=== PATIENT | female | born 2000 | race Caucasian/White ===

== ENCOUNTER 2020-07-30 09:53 | Outpatient (RCR) | payer OTHER, SELFPAY ==
--- NOTE | 2020-08-21 08:32 | MHC.PT.DC ---
[facility] [place] Office [place] Office [place] Office [address] Morris Cueto [address] [facility] [phone] F: [phone] F: [phone] F: [phone] F: [phone] Physical Therapy Discharge Report Diagnosis: Left knee and back pain Date of Evaluation: 06/23/20 Date of Discharge: 08/21/20 Treatments to Date: 8 Cancellations to Date: 2 No Shows to Date: 1 Discharge Status: Visit Non-compliance Discharge Summary: D/c due to noncompliance with scheduling policy Electronically signed by: Regina Soria DPRachel Please sign and return to therapist. Thank you for your referral.
== END 2020-08-21 08:40 | disposition other institution (70) ==
LOC: HO.PTWFD 09:53
PROVIDERS: PCP Hospitalist; Visit Provider Hospitalist
DX: M25.562 Pain in left knee (principal); M54.9 Dorsalgia, unspecified; G89.29 Other chronic pain
CPT/HCPCS: 97110

== ENCOUNTER → 2021-01-12 15:06 | Outpatient (BNVA) | payer OTHER, SELFPAY | PROVIDERS: PCP Hospitalist; Visit Provider Surgery | DX: K42.9 Umbilical hernia without obstruction or gangrene (principal); L98.9 Disorder of the skin and subcutaneous tissue, unspecified | CPT/HCPCS: 99202 ==

== ENCOUNTER 2021-09-16 12:11 | Emergency (ER) | payer OTHER, SELFPAY ==
[2021-09-16 12:26] VITALS: BP 135/89; PULSE 86; RESP 18; TEMP 36.5; O2SAT 98; BMI 34.9
[2021-09-16 12:43] LABS: Appearance Urine HAZY; Color Urine YELLOW; Glucose Urine UA NEG (NEG); Leukocyte Esterase Urine NEG (NEG); Nitrite Urine NEG (NEG); Specific Gravity - Urine >= 1.030 (1.005-1.025); UACC Culture Trigger NO; Urine Blood NEG (NEG); Urine Ketones >=80 MG/DL (NEG); Urine Protein 1+ MG/DL (NEG-TRACE)
[2021-09-16 12:54] LABS: COVID-19 Test Negative (Negative)
--- NOTE | 2021-09-16 13:01 | ED_ITS ---
HPI - General Adult General Chief complaint: General Medical Stated complaint: congestion, cough, chest wall pain Time Seen by Provider: 09/16/21 13:01 Source: patient Mode of arrival: ambulatory Limitations: no limitations History of Present Illness HPI narrative: patient with URI symptoms with chills, abdominal pain and nausea and vomiting. Patient denies , patient is not vaccinated. Patient has been sick for a week. Onset (ago): week(s) Severity: mild Associated symptoms: nausea/vomiting Related Data Home Medications Medication Instructions Recorded Confirmed ferrous sulfate 325 mg (65 mg 325 mg PO DAILY 12/17/20 01/12/21 iron) tablet,delayed release vitamin with calcium 1 tab PO DAILY 12/17/20 01/12/21 no.72-iron 27 mg-folic acid 1 mg tablet Previous Rx's Medication Instructions Recorded ondansetron HCl 4 mg tablet 4 mg PO Q8H PRN #10 tab 09/16/21 (Zofran) [id number]-[id number] 2.5 20 ml PO Q4H PRN #118 ml 09/16/21 mg-5 mg-50 mg/5 mL oral liquid (Robitussin Cough and Cold CF) Allergies Allergy/AdvReac Type Severity Reaction Status Date / Time No Known Allergies Allergy Verified 01/12/21 15:14 [No Known Allergies*] Review of Systems Constitutional: Constitutional: Reports no additional constitutional complaints Eyes: Eyes: Reports no additional eye complaints ENT: Denies dizziness Cardiovascular: Cardiovascular: Reports no additional cardiovascular complaints Respiratory: Respiratory: Reports as per HPI Gastrointestinal: Gastrointestinal: Reports no additional gastrointestinal complaints Genitourinary: Genitourinary: Reports no additional female genitourinary complaints Musculoskeletal: Musculoskeletal: Reports no additional musculoskeletal complaints Integumentary/Breasts: Skin/Breast: Denies rash Neurologic: Reports system reviewed and no additional complaints, except as documented, Denies dizziness and Denies Sensory deficit (Neuro) Psychiatric: Psychiatric: Denies anxiety PMFSH Past Medical History Medical History Anxiety and depression Body piercing Skin lesion Umbilical hernia Surgical History History of section Family History Family History Father No problems noted. Mother Bipolar 1 disorder Anxiety Depression Paternal Grandmother Bipolar 1 disorder Other Breast cancer Ovarian cancer Stomach cancer Social History Social History Advance Directives Date on File: 07/30/20 Physical Exam Vital Signs: Vital Signs: Last Vital Signs Temp 97.7 F 09/16/21 12:26 Pulse 86 09/16/21 12:26 Resp 18 09/16/21 12:26 BP 135/89 09/16/21 12:26 Pulse Ox 98 09/16/21 12:26 Body Mass Index 34.9 Const: General: healthy appearing Nutritional Appearance: average body habitus Orientation/consciousness: oriented to person and patient oriented x3 Limitations: no limitations HENMT: Head: Yes normal to inspection Ears: external ears normal General nose exam: Normal external nose present Mouth: Normal oral and palatal mucosa present and oropharynx normal Throat: Yes posterior oropharynx normal Eyes: General: appearance normal, both eyes and all related structures Neck: Other: supple Neck: Yes normal visual inspection Chest: Chest palpation & inspection: normal inspection of the chest Resp: Auscultation: clear to auscultation bilaterally Cardio: Jugular venous distension: no JVD Rate: regular rate Rhythm: regular rhythm Heart sounds: S1 normal heart sound present and S2 normal heart sound present GI: Inspection: Yes normal to inspection Palpation (GI): Soft to palpation, nontender and No hepatosplenomegaly present Auscultation: normal bowel sounds : General: Yes no CVA tenderness Back/Spine/Pelvis: Back: no CVA tenderness Skin: General skin exam: no rashes or lesions noted Neuro: General: oriented to person and patient oriented x3 Cranial nerves: Yes CN's II-XII intact bilaterally Motor exam (neuro): 5/5 motor strength present throughout Sensory Exam: No Sensory deficit (Neuro) Extrem: General: Yes normal to inspection Psych: Appearance: grossly normal Course Reevaluation(s) Reevaluation #1: patient with URI and vomiting will dc on robitussin and zofran Time: 13:08 Medical Decision Making Lab Data Labs: Lab Results 09/16/21 09/16/21 Range/Units 12:30 12:34 Urine Color YELLOW Urine Appearance HAZY Urine pH 6.0 (5.0-8.0) Ur Specific [place] >= 1.030 H (1.005-1.025) Urine Protein 1+ H (NEG-TRACE) MG/DL Urine Glucose (UA) NEG (NEG) MG/DL Urine Ketones >=80 (NEG) MG/DL Urine Blood NEG (NEG) Urine Nitrite NEG (NEG) Ur Leukocyte Esterase NEG (NEG) COVID-19 (CHRISTIAN) Negative (Negative) COVID-19 Clin Com See Note Discharge Plan Discharge Clinical Impression: Upper respiratory infection Qualifiers: URI type: unspecified URI Qualified Code(s): J06.9 - Acute upper respiratory infection, unspecified Vomiting Qualifiers: Vomiting type: unspecified Vomiting Intractability: non-intractable Nausea presence: with nausea Qualified Code(s): R11.2 - Nausea with vomiting, unspecified Patient Disposition: Home, Self-Care Instructions: Upper Respiratory Infection (ED), Acute Nausea and Vomiting (ED), Viral Syndrome (ED) Prescriptions: New ondansetron HCl [Zofran] 4 mg tablet 4 mg PO Q8H PRN (Reason: nausea and vomiting) Qty: 10 RF: 0 Robitussin Cough and Cold CF 2.5-5-50 mg/5 mL liquid 20 ml PO Q4H PRN (Reason: cold symptoms) Qty: 118 RF: 0 No Action Vitamin Plus Low Iron 27 mg iron- 1 mg tablet 1 tab PO DAILY RF: 0 ferrous sulfate 325 mg (65 mg iron) tablet,delayed release (DR/EC) 325 mg PO DAILY RF: 0 Referrals: Nichole Spangler NP [Primary Care Provider] - 1 week
[2021-09-16 13:11] LABS: Mucus Urine 2+ /LPF; RBC Urine 0-2 /HPF (0); Squamous Epithelial Cell Urine 1+ /LPF; WBC Urine 0-2 /HPF (0-4)
[2021-09-16] MEDS: Ondansetron ODT 4 MG TAB.RAPDIS TRANSLINGU (13:23)
--- NOTE | 2021-09-16 13:49 | PC.NURSE ---
no n/v, skin wpd, reports zofran worked well,
== END 2021-09-16 13:49 | disposition home or self-care (01) ==
LOC: HO.ED 13:30
PROVIDERS: Emergency Provider Emergency Medicine; PCP Internal Medicine
DX: J06.9 Acute upper respiratory infection, unspecified (principal); R09.81 Nasal congestion; R05.9 Cough, unspecified; R11.2 Nausea with vomiting, unspecified; R07.89 Other chest pain; Z20.822 Contact with and (suspected) exposure to COVID-19; Z79.899 Other long term (current) drug therapy
CPT/HCPCS: 36415; 81001; 87635; 99283

== ENCOUNTER 2021-09-17 17:15 | Emergency (ER) | payer OTHER, SELFPAY ==
--- NOTE | ~2021-09-17 | CT_ITS ---
EXAMINATION: CT CHEST, ABDOMEN AND PELVIS WITH CONTRAST CLINICAL INFORMATION: Difficulty breathing. Question pneumonia. Abdominal pain, back pain, elevated white blood cell count. COMPARISON: Chest radiograph done earlier the same day. TECHNIQUE: Contiguous axial thin section helical images of the chest, abdomen and pelvis were performed following the administration of oral contrast and 85 mL of intravenous Omnipaque 350. The data set was reformatted in the coronal and sagittal planes and reviewed on an independent workstation. This CT examination was performed using dose optimization techniques as appropriate, variously including the following: *Automated exposure control *Adjustment of mA and/or kV according to patient size (this includes techniques or standardized protocols for targeted exams where dose is matched to indication/reason for exam; i.e. extremities or head) *Use of iterative reconstruction technique DLP: 759 mGy-cm FINDINGS: LUNGS: No airspace consolidation to correspond to the prior chest radiograph findings. No pulmonary nodule or mass. The central airways are patent. PLEURA: No pleural effusion or pneumothorax. No pleural mass or thickening. MEDIASTINUM: No cardiomegaly. No significant pericardial effusion. No thoracic aortic dilatation or dissection. 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 No significant mediastinal or hilar lymphadenopathy. CHEST WALL/AXILLA: No lymphadenopathy. THYROID: Unremarkable. LIVER, GALLBLADDER, AND BILIARY TREE: Normal size, shape, and attenuation. No focal hepatic lesion. No intra or extrahepatic biliary ductal dilatation. The gallbladder is unremarkable with no evidence of radiopaque gallstones, gallbladder wall thickening, or obvious pericholecystic inflammatory changes. PANCREAS: Unremarkable. SPLEEN: Unremarkable. ADRENAL GLANDS: Unremarkable. KIDNEYS AND URETERS: Normal size, shape, and attenuation. No hydronephrosis, hydroureter, or calculi. No perinephric stranding. BLADDER: Unremarkable. GASTROINTESTINAL TRACT: No bowel wall thickening or associated inflammatory change. No small or large bowel obstruction. The appendix is unremarkable. PERITONEAL CAVITY: No intra-abdominal free air or free fluid. No intra-abdominal mass or organized fluid collection/abscess formation. ABDOMINAL WALL: No significant abdominal wall hernia. LYMPH NODES: No significant lymphadenopathy. VASCULAR: Contrast opacifies the abdominal aorta and its branch vessels. No abdominal aortic dilatation or dissection. The IVC is unremarkable. PELVIC VISCERA: The uterus and adnexa are unremarkable. OSSEOUS STRUCTURES: No acute osseous abnormality. No lytic or blastic osseous lesion. CT/CT abdomen pelvis w con IMPRESSION: 1. No airspace consolidation. No findings to correlate with the chest radiograph. No pulmonary nodule or mass. 2. No intra-abdominal mass, abscess, lymphadenopathy, or ascites. 3. No bowel wall thickening or associated inflammatory change. No small or large bowel obstruction. Unremarkable appendix.
--- NOTE | ~2021-09-17 | XR_ITS ---
EXAMINATION: XR CHEST CLINICAL INFORMATION: Difficulty breathing. COMPARISON: None. TECHNIQUE: AP view of the chest was obtained. FINDINGS: Subtle asymmetric airspace densities in the right lower lobe with otherwise clear lungs. No pleural effusion or pneumothorax. Normal appearance of the cardiomediastinal silhouette. No acute osseous findings. XR/XR chest 1V IMPRESSION: Questionable hazy airspace opacities in the right lung base which could potentially be related with subsegmental atelectasis or bronchovascular crowding. However, an early infiltrate is difficult to entirely exclude and clinical correlation for an infection is needed. No dense focal consolidation. No pleural effusion or pneumothorax.
[2021-09-17 17:20] VITALS: BP 143/126; PULSE 99; RESP 33; TEMP 36.5; O2SAT 99; BMI 28.2
--- NOTE | 2021-09-17 17:59 | ED_ITS ---
HPI - General Adult General Chief complaint: General Medical Stated complaint: Diff breathing Time Seen by Provider: 09/17/21 17:34 Source: patient, family and old records reviewed Mode of arrival: ambulatory Limitations: no limitations History of Present Illness HPI narrative: 21-year-old female with history of bipolar, depression, anxiety, cannabis hyperemesis syndrome presents to the ER with ongoing middle abdominal pain, back pain and headaches that have been going on for the last 3 days. She was recently seen in this emergency room was discharged with sublingual Zofran after an unremarkable workup. She went home and had continued vomiting and did not feel well so she went to [facility] Emergency Room. She states while in the ER at [facility] she had a syncopal episode in the bathroom. She says her legs gave out. Boyfriend is at the bedside who describes these ?seizure-like episodes were she is awake but all of her extremities or shaking and contorted. She has a history of anxiety attacks. MD complaint: abdominal pain, back pain and headache x3 days Onset (ago): day(s) (3) Related Data Home Medications Medication Instructions Recorded Confirmed ferrous sulfate 325 mg (65 mg 325 mg PO DAILY 12/17/20 01/12/21 iron) tablet,delayed release vitamin with calcium 1 tab PO DAILY 12/17/20 01/12/21 no.72-iron 27 mg-folic acid 1 mg tablet Previous Rx's Medication Instructions Recorded ondansetron HCl 4 mg tablet 4 mg PO Q8H PRN #10 tab 09/16/21 (Zofran) vvyxlqhelvbng-YG-fjlglhhruit 2.5 20 ml PO Q4H PRN #118 ml 09/16/21 mg-5 mg-50 mg/5 mL oral liquid (Robitussin Cough and Cold CF) Allergies Allergy/AdvReac Type Severity Reaction Status Date / Time No Known Allergies Allergy Verified 09/17/21 17:20 [No Known Allergies*] [facility] Past Medical History Medical History (Updated 09/17/21 @ 23:39 by ADELITA Taylor) Anxiety and depression Bipolar 1 disorder Body piercing Skin lesion Umbilical hernia Surgical History History of section Family History Family History Father No problems noted. Mother Bipolar 1 disorder Anxiety Depression Paternal Grandmother Bipolar 1 disorder Other Breast cancer Ovarian cancer Stomach cancer Social History Social History Advance Directives: No Advance Directives Information Provided: Yes Advance Directives Date on File: 07/30/20 Patient : No Physical Exam Vital Signs: Vital Signs: Last Vital Signs Temp 98.7 F 09/17/21 22:16 Pulse 79 09/17/21 22:16 Resp 16 09/17/21 22:16 BP 105/56 L 09/17/21 22:16 Pulse Ox 98 09/17/21 22:16 Body Mass Index 28.2 Course Course Course Narrative: 21 y/o female with history of bipolar, anxiety, depression who presents for 30 our visit in 2 days for ongoing abdominal pain, back pain, vomiting, headache. She reports that ?everything checked out okay? at both ER workups and Laurie did a pelvic ultrasound that did not reveal any ovarian cyst. She denies chance of . She states last time she smoked marijuana was 4 days ago and does have a history of cyclical vomiting. She is dry heaving on my initial examination with some epigastric tenderness. She is tachypneic and tachycardic, very anxious. He will get labs give IV Zofran and IV Toradol. will monitor closely and reassess. Reevaluation(s) Reevaluation #1: Informed by nursing that patient was having seizure-like activity but was awake. On evaluation patient was hyperventilating and very anxious, hand contractures consistent with carpal pedal spasm and not seizure activity. IM Ativan given with improvement. Reevaluation #2: Lab workup showing a with blood cell count 13.2 along with a l actic acid 2.8. This is nonspecific and may be reactive from her vomiting over the last several days. Her chest x-ray did show possible infiltrate in the right lower lobe. Will cover with IV antibiotics for community-acquired pneumonia and get CT scan of the chest abdomen pelvis for further evaluation. Reevaluation #3: Patient is sleeping comfortably. CT scans show no acute findings specifically no pneumonia no acute intra-abdominal findings. When awoken patient is asking for medication for pain. We discussed her urine toxicology results which are opiates, fentanyl and marijuana positive. She denies any IV drug use. She thinks she may have gotten some pain medication while at [facility]. At this time her workup is unremarkable with negative CT scans and normalized lactic acid. She sleeping comfortably between care. No vomiting since arrival. No further panic attacks. She is stable for discharge home with supportive care and outpatient follow-up. Medical Decision Making Lab Data Result diagrams: 09/17/21 18:38 09/17/21 18:38 Labs: Lab Results 09/17/21 09/17/21 09/17/21 Range/Units 18:38 18:38 18:38 WBC 13.2 H (4.8-10.8) X10*3/uL RBC 4.73 (4.20-5.50) X10*6/uL Hgb 14.2 (12.0-16.0) g/dl Hct 40.7 (37.0-47.0) % MCV 86.0 (80.0-98.0) fL MCH 30.0 (27.0-33.0) pg MCHC 34.9 (31.0-35.0) g/dl RDW 12.9 (11.0-16.0) % Plt Count 354 (160-400) X10*3/uL MPV 10.3 (9.4-12.3) fL Immature Gran % (Auto) 0.3 (0.0-0.4) % Neut % (Auto) 81.2 H (45-73) % Lymph % (Auto) 10.5 L (20-40) % [place] % (Auto) 7.7 (2-11) % Eos % (Auto) 0.1 (0-4) % Baso % (Auto) 0.2 (0-2) % Lymph # (Auto) 1.4 (1.2-4.9) X10*3/uL [place] # (Auto) 1.0 (0.1-1.2) X10*3/uL Eos # (Auto) 0.0 (0.0-0.4) X10*3/uL Baso # (Auto) 0.0 (0.0-0.2) X10*3/uL Abs Immat Gran (auto) 0.04 H (0.00-0.03) X10*3/uL Absolute Neuts (auto) 10.7 H (2.0-8.3) x10*3/uL Absolute Nucleated RBC 0.000 (0.0-0.012) X10*3/uL Nucleated RBC % (auto) 0.0 (0.0-0.2) /100WBC Sodium 140 (135-145) mmol/L Potassium 3.8 (3.3-5.1) mmol/L Chloride 104 (96-108) mmol/L Carbon Dioxide 23 (22-29) mmol/L Anion Gap 17 (12-20) BUN 8 L (9-16) mg/dL Creatinine 0.82 (0.5-1.4) mg/dL Estim Creat Clear Calc 113.4 Estimated GFR > 60 Random Glucose 104 (60-115) mg/dL Lactic Acid (0.5-2.0) mmol/L Lactic Acid Fup @ 2Hr (0.5-2.0) mmol/L Calcium 10.3 H (8.4-10.2) mg/dL Magnesium 1.8 (1.6-2.6) mg/dL Total Bilirubin 0.3 (0.0-1.0) mg/dL Direct Bilirubin 0.2 (0.0-0.5) mg/dL AST 18 (5-31) U/L ALT 30 (0-31) U/L Alkaline Phosphatase 64 (39-117) U/L Total Protein 8.3 H (6.5-8.0) g/dL Albumin 5.0 (3.5-5.0) g/dL Lipase 38 (8-78) U/L Urine Color Urine Appearance Urine pH (5.0-8.0) Ur Specific Circle (1.005-1.025) Urine Protein (NEG-TRACE) MG/DL Urine Glucose (UA) (NEG) MG/DL Urine Ketones (NEG) MG/DL Urine Blood (NEG) Urine Nitrite (NEG) Ur Leukocyte Esterase (NEG) Urine RBC (0) /HPF Urine WBC (0-4) /HPF Ur Squamous Epith Cells /LPF [place] Biurate Crystals /LPF Urine Bacteria /LPF Urine Mucus /LPF Urine Test (NEGATIVE) Urine Opiates Screen (Not Detect) Urine Fentanyl Screen (Not Detect) Ur Barbiturates Screen (Not Detect) Ur Phencyclidine Scrn (Not Detect) Ur Amphetamines Screen (Not Detect) U Benzodiazepines Scrn (Not Detect) Urine Cocaine Screen (Not Detect) U Marijuana (THC) Screen (Not Detect) Ethyl Alcohol mg/dL COVID-19 (CHRISTIAN) Negative (Negative) COVID-19 Clin Com See Note 09/17/21 09/17/21 09/17/21 Range/Units 18:38 18:38 18:38 WBC (4.8-10.8) X10*3/uL RBC (4.20-5.50) X10*6/uL Hgb (12.0-16.0) g/dl Hct (37.0-47.0) % MCV (80.0-98.0) fL MCH (27.0-33.0) pg MCHC (31.0-35.0) g/dl RDW (11.0-16.0) % Plt Count (160-400) X10*3/uL MPV (9.4-12.3) fL Immature Gran % (Auto) (0.0-0.4) % Neut % (Auto) (45-73) % Lymph % (Auto) (20-40) % [place] % (Auto) (2-11) % Eos % (Auto) (0-4) % Baso % (Auto) (0-2) % Lymph # (Auto) (1.2-4.9) X10*3/uL [place] # (Auto) (0.1-1.2) X10*3/uL Eos # (Auto) (0.0-0.4) X10*3/uL Baso # (Auto) (0.0-0.2) X10*3/uL Abs Immat Gran (auto) (0.00-0.03) X10*3/uL Absolute Neuts (auto) (2.0-8.3) x10*3/uL Absolute Nucleated RBC (0.0-0.012) X10*3/uL Nucleated RBC % (auto) (0.0-0.2) /100WBC Sodium (135-145) mmol/L Potassium (3.3-5.1) mmol/L Chloride (96-108) mmol/L Carbon Dioxide (22-29) mmol/L Anion Gap (12-20) BUN (9-16) mg/dL Creatinine (0.5-1.4) mg/dL Estim Creat Clear Calc Estimated GFR Random Glucose (60-115) mg/dL Lactic Acid 2.8 H* (0.5-2.0) mmol/L Lactic Acid Fup @ 2Hr (0.5-2.0) mmol/L Calcium (8.4-10.2) mg/dL Magnesium (1.6-2.6) mg/dL Total Bilirubin (0.0-1.0) mg/dL Direct Bilirubin (0.0-0.5) mg/dL AST (5-31) U/L ALT (0-31) U/L Alkaline Phosphatase (39-117) U/L Total Protein (6.5-8.0) g/dL Albumin (3.5-5.0) g/dL Lipase (8-78) U/L Urine Color YELLOW Urine Appearance HAZY Urine pH 6.5 (5.0-8.0) Ur Specific Circle >= 1.030 H (1.005-1.025) Urine Protein 3+ H (NEG-TRACE) MG/DL Urine Glucose (UA) NEG (NEG) MG/DL Urine Ketones >=80 (NEG) MG/DL Urine Blood NEG (NEG) Urine Nitrite NEG (NEG) Ur Leukocyte Esterase NEG (NEG) Urine RBC 1-4 (0) /HPF Urine WBC 1-4 (0-4) /HPF Ur Squamous Epith Cells 2+ /LPF [place] Biurate Crystals 1+ /LPF Urine Bacteria 1+ /LPF Urine Mucus 1+ /LPF Urine Test (NEGATIVE) Urine Opiates Screen (Not Detect) Urine Fentanyl Screen (Not Detect) Ur Barbiturates Screen (Not Detect) Ur Phencyclidine Scrn (Not Detect) Ur Amphetamines Screen (Not Detect) U Benzodiazepines Scrn (Not Detect) Urine Cocaine Screen (Not Detect) U Marijuana (THC) Screen (Not Detect) Ethyl Alcohol < 10 mg/dL COVID-19 (CHRISTIAN) (Negative) COVID-19 Clin Com 09/17/21 09/17/21 09/17/21 Range/Units 18:38 18:38 21:25 WBC (4.8-10.8) X10*3/uL RBC (4.20-5.50) X10*6/uL Hgb (12.0-16.0) g/dl Hct (37.0-47.0) % MCV (80.0-98.0) fL MCH (27.0-33.0) pg MCHC (31.0-35.0) g/dl RDW (11.0-16.0) % Plt Count (160-400) X10*3/uL MPV (9.4-12.3) fL Immature Gran % (Auto) (0.0-0.4) % Neut % (Auto) (45-73) % Lymph % (Auto) (20-40) % [place] % (Auto) (2-11) % Eos % (Auto) (0-4) % Baso % (Auto) (0-2) % Lymph # (Auto) (1.2-4.9) X10*3/uL [place] # (Auto) (0.1-1.2) X10*3/uL Eos # (Auto) (0.0-0.4) X10*3/uL Baso # (Auto) (0.0-0.2) X10*3/uL Abs Immat Gran (auto) (0.00-0.03) X10*3/uL Absolute Neuts (auto) (2.0-8.3) x10*3/uL Absolute Nucleated RBC (0.0-0.012) X10*3/uL Nucleated RBC % (auto) (0.0-0.2) /100WBC Sodium (135-145) mmol/L Potassium (3.3-5.1) mmol/L Chloride (96-108) mmol/L Carbon Dioxide (22-29) mmol/L Anion Gap (12-20) BUN (9-16) mg/dL Creatinine (0.5-1.4) mg/dL Estim Creat Clear Calc Estimated GFR Random Glucose (60-115) mg/dL Lactic Acid (0.5-2.0) mmol/L Lactic Acid Fup @ 2Hr 0.8 (0.5-2.0) mmol/L Calcium (8.4-10.2) mg/dL Magnesium (1.6-2.6) mg/dL Total Bilirubin (0.0-1.0) mg/dL Direct Bilirubin (0.0-0.5) mg/dL AST (5-31) U/L ALT (0-31) U/L Alkaline Phosphatase (39-117) U/L Total Protein (6.5-8.0) g/dL Albumin (3.5-5.0) g/dL Lipase (8-78) U/L Urine Color Urine Appearance Urine pH (5.0-8.0) Ur Specific Circle (1.005-1.025) Urine Protein (NEG-TRACE) MG/DL Urine Glucose (UA) (NEG) MG/DL Urine Ketones (NEG) MG/DL Urine Blood (NEG) Urine Nitrite (NEG) Ur Leukocyte Esterase (NEG) Urine RBC (0) /HPF Urine WBC (0-4) /HPF Ur Squamous Epith Cells /LPF [place] Biurate Crystals /LPF Urine Bacteria /LPF Urine Mucus /LPF Urine Test NEGATIVE (NEGATIVE) Urine Opiates Screen POSITIVE H (Not Detect) Urine Fentanyl Screen POSITIVE H (Not Detect) Ur Barbiturates Screen Not Detected (Not Detect) Ur Phencyclidine Scrn Not Detected (Not Detect) Ur Amphetamines Screen Not Detected (Not Detect) U Benzodiazepines Scrn Not Detected (Not Detect) Urine Cocaine Screen Not Detected (Not Detect) U Marijuana (THC) Screen POSITIVE H (Not Detect) Ethyl Alcohol mg/dL COVID-19 (CHRISTIAN) (Negative) COVID-19 Clin Com ECG Data Attestation: I personally reviewed and interpreted this ECG as follows: Interpretation: sinus rhythm w/ sinus arrythmia, HR 60 bpm, normal FL interval, normal QTc, no ST segment elevations or depressions Critical Care Time Critical Care Time Critical Care Time: Yes Total Critical Care Time: 36 Attestation: I have personally provided critical care time exclusive of time spent on separately billable procedures. Time includes review of lab data, radiology results, frequent reassessments and monitoring for potential decompensation. Intervention performed as documented. Discharge Plan Discharge Clinical Impression: Cyclical vomiting, Panic attack, Marijuana use Patient Disposition: Home, Self-Care Instructions: Acute Nausea and Vomiting (ED), Panic Attack (ED) Additional Instructions: Your CT scans of the chest, abdomen and pelvis today were completely normal. Your urine toxicology was positive for opiates, fentanyl and marijuana. This can lead to your symptoms of ongoing vomiting and feeling unwell. Take the previously prescribed nausea medication as needed for nausea vomiting. Rest and stay hydrated. Alternate Motrin and Tylenol as needed at home for aches and pains. Follow-up with your doctor tomorrow or early next week. If you develop new or worsening symptoms call 911 or come back to the ER for further evaluation. Prescriptions: No Action ondansetron HCl [Zofran] 4 mg tablet 4 mg PO Q8H PRN (Reason: nausea and vomiting) Qty: 10 RF: 0 Robitussin Cough and Cold CF 2.5-5-50 mg/5 mL liquid 20 ml PO Q4H PRN (Reason: cold symptoms) Qty: 118 RF: 0 Vitamin Plus Low Iron 27 mg iron- 1 mg tablet 1 tab PO DAILY RF: 0 ferrous sulfate 325 mg (65 mg iron) tablet,delayed release (DR/EC) 325 mg PO DAILY RF: 0
--- NOTE | 2021-09-17 17:59 | ECG_ITS ---
Test Reason : nausea/vomit Blood Pressure : / mmHG Vent. Rate : 060 BPM Atrial Rate : 060 BPM P-R Int : 138 ms QRS Dur : 090 ms QT Int : 410 ms P-R-T Axes : 046 066 044 degrees QTc Int : 410 ms Sinus rhythm with marked sinus arrhythmia Otherwise normal ECG When compared with ECG of 23-APR-2019 22:49, Vent. rate has decreased BY 29 BPM Referred By: Tere Kingston Electronically Signed By:HIRAM HOWARD MD
[2021-09-17] MEDS: LORazepam 2 MG/ML VIAL IM (18:06)
--- NOTE | 2021-09-17 18:16 | PC.NURSE ---
PT SEEN TO BE FLAILING ON STRETCHER, CONTORTING HER BODY, SHAKING, PT SPEAKS IN FULL SENTENCES WHILE SHE DOES THIS, BREATHING IS NORMAL AND UNLABORED AT THIS TIME. PER PROVIDER 2MG ATIVAN IM GIVEN, PT STILL TWITCHING NOW. PROVIDER AWARE, WILL WAIT FOR LABS & IV LINE UNTIL PT IS MORE CALM.
[2021-09-17 18:43] LABS: MANUAL DIFF FLAG NO
[2021-09-17 18:45] LABS: Basophils Percent Auto 0.2 % (0-2); Eosinophils Percent Auto 0.1 % (0-4); Hematocrit 40.7 % (37.0-47.0); Hemoglobin 14.2 g/dl (12.0-16.0); Imm Gran Abs Auto 0.04 X10*3/uL (0.00-0.03); Imm Gran Pct Auto 0.3 % (0.0-0.4); Lymphocytes Absolute Auto 1.4 X10*3/uL (1.2-4.9); Lymphocytes Percent Auto 10.5 % (20-40); Mean Corpuscular HGB Conc 34.9 g/dl (31.0-35.0); Mean Platelet Volume 10.3 fL (9.4-12.3); Monocytes Percent Auto 7.7 % (2-11); Neutrophils Absolute Auto 10.7 x10*3/uL (2.0-8.3); Neutrophils Percent Auto 81.2 % (45-73); Platelet Count 354 X10*3/uL (160-400); Red Blood Count 4.73 X10*6/uL (4.20-5.50); Red Cell Distribution Width 12.9 % (11.0-16.0); White Blood Count 13.2 X10*3/uL (4.8-10.8)
[2021-09-17 18:46] LABS: Appearance Urine HAZY; Color Urine YELLOW; Glucose Urine UA NEG (NEG); Leukocyte Esterase Urine NEG (NEG); Nitrite Urine NEG (NEG); PH 6.5 (5.0-8.0); Specific Gravity - Urine >= 1.030 (1.005-1.025); UACC Culture Trigger NO; Urine Blood NEG (NEG); Urine Ketones >=80 MG/DL (NEG); Urine Protein 3+ MG/DL (NEG-TRACE)
[2021-09-17 18:48] LABS: UPreg QC Valid YES; Urine Pregnancy NEGATIVE (NEGATIVE)
[2021-09-17 18:50] VITALS: BP 124/67; PULSE 53; RESP 14; TEMP 36.9; O2SAT 100
[2021-09-17 18:59] LABS: Ethanol < 10 mg/dL
[2021-09-17 19:01] LABS: Amphetamine Screen Urine Not Detected (Not Detect); Barbiturates, Urine Not Detected (Not Detect); Benzodiazepines Screen Urine Not Detected (Not Detect); COVID-19 Test Negative (Negative); Cannabinoid Screen Urine POSITIVE (Not Detect); Cocaine Screen Urine Not Detected (Not Detect); Fentanyl, urine POSITIVE (Not Detect); Opiate Screen Urine POSITIVE (Not Detect); Phencyclidine Screen Urine Not Detected (Not Detect)
[2021-09-17 19:03] LABS: Alanine Aminotransferase 30 U/L (0-31); Alkaline Phosphatase 64 U/L (39-117); Anion Gap 17 (12-20); Aspartate Amino Transferase 18 U/L (5-31); Bilirubin Direct 0.2 mg/dL (0.0-0.5); Bilirubin Total 0.3 mg/dL (0.0-1.0); Blood Urea Nitrogen 8 mg/dL (9-16); Calcium 10.3 mg/dL (8.4-10.2); Carbon Dioxide 23 mmol/L (22-29); Chloride 104 mmol/L (96-108); Creatinine Clr Calc Pharmacy 113.4; Estimated Glomerular Filt Rate > 60; Glucose Random 104 mg/dL (60-115); Lactic Acid 2.8 mmol/L (0.5-2.0); Lipase 38 U/L (8-78); Magnesium 1.8 mg/dL (1.6-2.6); Potassium 3.8 mmol/L (3.3-5.1); Sodium 140 mmol/L (135-145); Total Protein 8.3 g/dL (6.5-8.0)
[2021-09-17 19:04] LABS: UACC CULT YES
[2021-09-17 19:05] LABS: Bacteria Urine 1+ /LPF; Mucus Urine 1+ /LPF; Squamous Epithelial Cell Urine 2+ /LPF
[2021-09-17] MEDS: 0.9 % Sodium Chloride 1,000 ML 999 ML IVCONT ×2 (19:20→21:07)
[2021-09-17] MEDS: Ketorolac Tromethamine 15 MG/ML VIAL 30 MG IVPUSH (19:20)
--- NOTE | 2021-09-17 19:24 | PC.NURSE ---
IV inserted in right AC. PT medicated per DEC. PT VSS. PT is resting in bed with complaints of abdominal pain. Awaiting CT scan.
--- NOTE | 2021-09-17 20:01 | PC.NURSE ---
PT transferred to CT scan via stretcher.
[2021-09-17] MEDS: cefTRIAXone sodium 1 GM in 0.9 % Sodium Chloride 50 ML IV (20:07)
[2021-09-17] MEDS: iohexoL 350 MG/ML 100 ML INFUS..BTL IV (20:11)
[2021-09-17] MEDS: Azithromycin 500 MG in 0.9 % Sodium Chloride 250 ML 125 MG IV (20:35)
[2021-09-17 20:43] LABS: Reflex Lactate? Lactic Acid Added
[2021-09-17 21:28] VITALS: BP 141/78; PULSE 99; RESP 14; TEMP 36.8; O2SAT 100
[2021-09-17 22:16] VITALS: BP 105/56; PULSE 79; RESP 16; TEMP 37.1; O2SAT 98
[2021-09-17 23:35] LABS: ~Lactic Acid-LAB USE ONLY 0.8 mmol/L (0.5-2.0)
[2021-09-17] MEDS: Acetaminophen 325 MG TABLET 975 MG PO (23:37)
[2021-09-17 23:41] VITALS: BP 124/68; PULSE 77; RESP 16; O2SAT 99
== END 2021-09-17 23:50 | disposition home or self-care (01) ==
PROVIDERS: Physician Assistant; Emergency Provider Student in an Organized Health Care Education/Training Program
DX: R11.15 Cyclical vomiting syndrome unrelated to migraine (principal); F41.0 Panic disorder [episodic paroxysmal anxiety]; F12.90 Cannabis use, unspecified, uncomplicated; Z20.822 Contact with and (suspected) exposure to COVID-19; R10.9 Unspecified abdominal pain; R51.9 Headache, unspecified; R00.0 Tachycardia, unspecified; F41.9 Anxiety disorder, unspecified
CPT/HCPCS: 36415; 71045; 71260; 74177; 80048; 80076; 80307; 81001; 81025; 82077; 83605; 83690; 83735; 85025; 87040; 87086; 87635; 93005; 96361; 96365; 96367; 96372; 96375; 99284; 99291; J0456; J0696; J1885; J2060; Q9967

== ENCOUNTER 2021-11-09 11:39 | Outpatient (REF) | payer OTHER, SELFPAY ==
[2021-11-09 13:57] LABS: Hematocrit 42.3 % (37.0-47.0); Hemoglobin 14.2 g/dl (12.0-16.0); Mean Corpuscular HGB Conc 33.6 g/dl (31.0-35.0); Mean Corpuscular Hemoglobin 29.3 pg (27.0-33.0); Mean Corpuscular Volume 87.2 fL (80.0-98.0); Mean Platelet Volume 10.2 fL (9.4-12.3); Platelet Count 426 X10*3/uL (160-400); Red Blood Count 4.85 X10*6/uL (4.20-5.50); Red Cell Distribution Width 12.2 % (11.0-16.0); White Blood Count 4.5 X10*3/uL (4.8-10.8)
[2021-11-09 14:23] LABS: Alanine Aminotransferase 44 U/L (0-31); Albumin Level 4.3 g/dL (3.5-5.0); Alkaline Phosphatase 68 U/L (39-117); Anion Gap 14 (12-20); Aspartate Amino Transferase 25 U/L (5-31); Bilirubin Total 0.3 mg/dL (0.0-1.0); Blood Urea Nitrogen 13 mg/dL (9-16); Calcium 9.8 mg/dL (8.4-10.2); Carbon Dioxide 21 mmol/L (22-29); Chloride 108 mmol/L (96-108); Cholesterol 155 mg/dL; Estimated Glomerular Filt Rate > 60; Glucose Fasting 94 mg/dL (60-99); HDL Cholesterol 40 mg/dL; LDL Cholesterol Calculated 98 mg/dl; Potassium 4.3 mmol/L (3.3-5.1); Sodium 139 mmol/L (135-145); Total Protein 7.3 g/dL (6.5-8.0); Triglycerides 89 mg/dL
[2021-11-09 14:45] LABS: TSH reflex Free T4 0.89 uIU/mL (0.32-4.0)
[2021-11-09 15:03] LABS: Amphetamine Screen Urine Not Detected (Not Detect); Barbiturates, Urine Not Detected (Not Detect); Benzodiazepines Screen Urine Not Detected (Not Detect); Cannabinoid Screen Urine POSITIVE (Not Detect); Cocaine Screen Urine Not Detected (Not Detect); Fentanyl, urine Not Detected (Not Detect); Opiate Screen Urine Not Detected (Not Detect); Phencyclidine Screen Urine Not Detected (Not Detect)
== END 2021-11-09 11:40 | disposition home or self-care (01) ==
LOC: HO.WFDLDS 11:39
PROVIDERS: Visit Provider Hospitalist
DX: Z00.01 Encounter for general adult medical examination with abnormal findings (principal); R82.5 Elevated urine levels of drugs, medicaments and biological substances
CPT/HCPCS: 36415; 80053; 80061; 80307; 84443; 85027

== ENCOUNTER 2022-09-23 11:03 | Outpatient (REF) | payer OTHER, SELFPAY ==
[2022-09-23 14:53] LABS: Amphetamine Screen Urine Not Detected (Not Detect); Barbiturates, Urine Not Detected (Not Detect); Benzodiazepines Screen Urine Not Detected (Not Detect); Cannabinoid Screen Urine Not Detected (Not Detect); Cocaine Screen Urine Not Detected (Not Detect); Fentanyl, urine Not Detected (Not Detect); Opiate Screen Urine Not Detected (Not Detect); Phencyclidine Screen Urine Not Detected (Not Detect)
== END 2022-09-23 11:04 | disposition home or self-care (01) ==
LOC: HO.WFDLDS 11:03
PROVIDERS: Visit Provider Hospitalist
DX: Z01.818 Encounter for other preprocedural examination (principal)
CPT/HCPCS: 80307

== ENCOUNTER 2022-09-27 10:03 | Outpatient (REF) | payer OTHER, SELFPAY ==
[2022-09-29 22:04] LABS: Hepatitis BE Antibody NON-REACTIVE (NON-REACTIVE)
== END 2022-09-27 10:04 | disposition home or self-care (01) ==
LOC: HO.WFDLDS 10:03
PROVIDERS: Visit Provider Hospitalist
DX: Z01.84 Encounter for antibody response examination (principal)
CPT/HCPCS: 36415; 86707

== ENCOUNTER 2022-10-13 16:32 | Outpatient (REF) | payer OTHER, SELFPAY ==
[2022-10-15 09:28] LABS: HBS Num1 0.68 mIU/mL (0-7.99); HBc Num1 0.08 S/CO (0.00-0.79); HBsAGNum1 0.23 S/CO (0.00-0.99); Hepatitis B Core Antibody Nonreactive (Nonreactive); Hepatitis B Surface Antigen Negative (Negative); ~HepC Num1 0.07 S/CO (0.00-0.79); ~Hepatitis B Surface Antibody NONREACTIVE (Nonreactive); ~Hepatitis C Antibody Nonreactive (Nonreactive)
[2022-10-15 18:53] LABS: Rubella IgG Antibody 5.06 Index
[2022-10-15 21:43] LABS: Hepatitis BE Antigen NON-REACTIVE (NON-REACTIVE)
[2022-10-16 02:24] LABS: TS Negative Control Passed; TS Panel A 0; TS Panel B 0; TS Positive Control Passed; TSpotTB Negative (Negative)
== END 2022-10-13 16:33 | disposition home or self-care (01) ==
LOC: HO.LAB 16:32
PROVIDERS: PCP Hospitalist; Visit Provider Family Medicine
DX: Z01.84 Encounter for antibody response examination (principal); Z11.3 Encounter for screening for infections with a predominantly sexual mode of transmission; Z11.1 Encounter for screening for respiratory tuberculosis
CPT/HCPCS: 36415; 86481; 86704; 86706; 86735; 86762; 86765; 86787; 86803; 87340; 87350

== ENCOUNTER 2022-12-29 14:02 | Outpatient (REF) | payer OTHER, SELFPAY ==
[2022-12-31 05:35] LABS: HBc Num1 0.15 S/CO (0.00-0.79); HBsAGNum1 0.37 S/CO (0.00-0.99); Hepatitis B Core Antibody Nonreactive (Nonreactive); Hepatitis B Surface Antigen Negative (Negative); ~Hepatitis B Surface Antibody REACTIVE (Nonreactive); ~Hepatitis C Antibody Nonreactive (Nonreactive)
[2022-12-31 21:58] LABS: Hepatitis BE Antigen NON-REACTIVE (NON-REACTIVE)
== END 2022-12-29 14:03 | disposition home or self-care (01) ==
LOC: HO.LAB 14:02
PROVIDERS: PCP Hospitalist; Visit Provider Hospitalist
DX: Z11.3 Encounter for screening for infections with a predominantly sexual mode of transmission (principal); Z71.85 Encounter for immunization safety counseling
CPT/HCPCS: 36415; 86704; 86706; 86803; 87340; 87350

== ENCOUNTER 2023-05-16 14:56 | Outpatient (AMB) | payer OTHER, SELFPAY ==
--- NOTE | 2023-05-16 15:05 | AM.OFFVISNUR ---
Intake Intake Visit Reasons: Hep B Allergies No Known Allergies [No Known Allergies*] Allergy (Verified 11/09/21 11:11) Immunizations Engerix-B (PF) Performing Provider: Renetta Diaz CNP Administered by: Yanna Maria RN on 05/16/23 15:15 Dose Route Admin Location Lot Number Expiration Date [employer] 1 mL IM Left Deltoid [id number] 03/25/24 58868-695-63 [employer] VIS Given Date VIS Provided VIS Publication Date 05/16/23 Single Vaccine 23 Eligibility Eligibility Date Funding Source Not [facility]FC Eligible 05/16/23 State funds Administration Comments: 3rd hepB vaccine given left deltoid. Coding Diagnoses Assessment & Plan Assessment & Plan Orders: Orders Hepatitis B Adult Immunization Today Z23 - Encounter for immunization, Z71.85 - Encounter for immunization safety counseling
== END 2023-05-16 15:14 | disposition home or self-care (01) ==
PROVIDERS: PCP Hospitalist; Visit Provider Hospitalist
DX: Z23 Encounter for immunization (principal); Z71.85 Encounter for immunization safety counseling
CPT/HCPCS: 90471; 90746